=== PATIENT | female | born 1980 | race Caucasian/White ===

== ENCOUNTER → 2018-11-21 | Outpatient (CLI) | payer OTHER ==
[~2018-11-21] MED LIST: AMOXICILLIN500 MG PO; AUGMENTIN 875 M1 TAB PO; CLARITIN10 MG PO; EFFEXOR50 MG PO; FLEXERIL5 MG PO; HYDROCODONE BIT1 T11 PO; MOTRIN800 MG PO; NORFLEX100 MG PO; TRAMADOL HCL50 MG PO; ULTRAM50 MG PO; VICO10300 PO; VICODIN ES 7501 TAB PO; VITAMIN COMPLEX PO; ZITHROMAX Z PA250 MG PO
== END | disposition home or self-care (01) ==
LOC: MAMMO 13:20
DX: N63.20 Unspecified lump in the left breast, unspecified quadrant (principal)

== ENCOUNTER → 2018-12-12 | Day surgery (SDC) | payer OTHER | END | disposition home or self-care (01) | LOC: SDC 04:43 | DX: N63.24 Unspecified lump in the left breast, lower inner quadrant (principal) ==

== ENCOUNTER → 2019-02-12 | Outpatient (CLI) | payer OTHER | END | disposition home or self-care (01) | LOC: RAD 11:44 | DX: S99.922A Unspecified injury of left foot, initial encounter (principal); R60.0 Localized edema; W10.8XXA Fall (on) (from) other stairs and steps, initial encounter; Y93.89 Activity, other specified; Y92.89 Other specified places as the place of occurrence of the external cause; Y99.8 Other external cause status ==

== ENCOUNTER → 2020-05-07 | Outpatient (CLI) | payer OTHER | END | disposition home or self-care (01) | LOC: COVID19 00:22 | DX: R50.9 Fever, unspecified (principal); Z20.828 Contact with and (suspected) exposure to other viral communicable diseases ==

== ENCOUNTER → 2020-08-04 | Outpatient (CLI) | payer BC | END | disposition home or self-care (01) | LOC: COVID19 09:39 | PROVIDERS: ATTEND Family Medicine | DX: Z20.828 Contact with and (suspected) exposure to other viral communicable diseases (principal) ==

== ENCOUNTER → 2021-02-13 | Outpatient (CLI) | payer BC ==
[2021-02-13 08:00] LABS: BASO % 0.2 % (0.0-1.0); EOS # 0.1 10*3/uL (0.0-0.4); EOS % 2.4 % (1.0-4.0); HEMATOCRIT 36.7 % (37.0-47.0); LYMPH # 0.5 10*3/uL (1.3-4.4); LYMPH % 12.5 % (27.0-41.0); MEAN CELL VOLUME 93.9 fl (81.0-99.0); MEAN CORPUSCULAR HGB 29.9 pg (27.0-31.0); MEAN CORPUSCULAR HGB CONC 31.9 g/dl (33.0-37.0); MEAN PLATELET VOLUME 10.1 fl (9.6-12.3); MONO # 0.3 10*3/uL (0.1-1.0); MONO % 7.6 % (3.0-9.0); NEUT # 3.2 10*3/uL (2.3-7.9); NEUT % 77.1 % (47.0-73.0); PLATELET COUNT AUTOMATED 151 10*3/uL (130-400); RED BLOOD COUNT 3.91 10*6/uL (4.10-5.10); RED CELL DISTRI WIDTH 12.8 % (0-14.5); WHITE BLOOD COUNT 4.1 10*3/uL (4.8-10.8)
[2021-02-13 08:18] LABS: ALBUMIN 3.8 gm/dl (3.1-4.5); ALKALINE PHOSPHATASE 66 U/L (45-117); BUN 11 mg/dl (7-24); CHLORIDE 111 mmol/L (98-107); CHOLESTEROL 117 mg/dL (<200); CREATININE 0.79 mg/dL (0.55-1.02); LDL CHOLESTEROL 59 mg/dL (9-159); POTASSIUM 3.9 mmol/L (3.5-5.1); SGOT/AST 12 IU/L (3-35); SGPT/ALT 19 U/L (12-78); SODIUM 142 mmol/L (136-145); TOTAL PROTEIN 7.4 gm/dL (6.4-8.2); TRIGLYCERIDES 55 mg/dl (<150)
== END | disposition home or self-care (01) ==
LOC: LAB 07:43
PROVIDERS: ATTEND Nurse Practitioner Family
DX: R23.3 Spontaneous ecchymoses (principal)

== ENCOUNTER → 2021-10-19 | Outpatient (CLI) | payer OTHER ==
[2021-10-19 09:29] LABS: HEMATOCRIT 37.8 % (37.0-47.0); MEAN CELL VOLUME 91.3 fl (81.0-99.0); MEAN CORPUSCULAR HGB 30.2 pg (27.0-31.0); MEAN CORPUSCULAR HGB CONC 33.1 g/dl (33.0-37.0); MEAN PLATELET VOLUME 9.7 fl (9.6-12.3); RED BLOOD COUNT 4.14 10*6/uL (4.10-5.10); RED CELL DISTRI WIDTH 12.7 % (0-14.5); WHITE BLOOD COUNT 3.9 10*3/uL (4.8-10.8)
[2021-10-19 09:56] LABS: ALBUMIN 3.9 gm/dl (3.1-4.5); BUN 8 mg/dl (7-24); CHLORIDE 111 mmol/L (98-107); POTASSIUM 3.7 mmol/L (3.5-5.1); SGOT/AST 12 IU/L (3-35); SODIUM 142 mmol/L (136-145); TOTAL PROTEIN 7.9 gm/dL (6.4-8.2)
[2021-10-19 10:11] LABS: ALKALINE PHOSPHATASE 63 U/L (45-117); CHOLESTEROL 175 mg/dL (<200); CREATININE 0.72 mg/dL (0.55-1.02); LDL CHOLESTEROL 88 mg/dL (9-159); SGPT/ALT 18 U/L (12-78); TRIGLYCERIDES 166 mg/dl (<150)
[2021-10-19 10:25] LABS: VITAMIN D, 25-HYDROXY 18.7 ng/mL (30-100)
[2021-10-20 05:06] LABS: RHEUMATOID ARTHRITIS FACTOR 11.3 IU/mL (<14.0)
[2021-10-20 07:06] LABS: HEP B CORE AB, IGM Negative (Negative); HEPATITIS B SURFACE AG Negative (Negative); HEPATITIS C VIRUS ANTIBODY <0.1 s/co (0.0-0.9)
== END | disposition home or self-care (01) ==
LOC: LAB 09:08
PROVIDERS: ATTEND Family Medicine
DX: R53.83 Other fatigue (principal); E55.9 Vitamin D deficiency, unspecified; R59.1 Generalized enlarged lymph nodes; M79.10 Myalgia, unspecified site; M25.50 Pain in unspecified joint